=== PATIENT | female | born 1945 | race Caucasian/White ===

== ENCOUNTER 2017-01-14 05:31 | Inpatient (IN) | payer MEDICARE ==
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
[2017-01-13 15:13] VITALS: BMI 19.7
--- OUTSIDE RECORDS SUMMARY | 2017-01-14 05:37 | XMS | Clinical Summary ---
:1945 Author Organization [facility] Address [address] [place] [address] Phone Care Team Providers Name Role Phone Aj Marquez Primary Care Provider tel Allergies Active Allergy Reactions Severity Noted Date Comments Atorvastatin 07/19/2015 Ezetimibe 07/19/2015 Current Medications Prescription Sig. Disp. Refills Start Date End Date Status multivitamin capsule Take 1 capsule by Active mouth daily. cholecalciferol, vitamin Chew 4,000 Units Active D3, 1,000 unit daily. tablet,chewable magnesium 30 mg tablet Take 30 mg by mouth Active 2 (two) times a day. OMEGA-3 FATTY ACIDS/FISH Take by mouth. Active OIL (OMEGA 3 FISH OIL ORAL) mirtazapine (REMERON) 15 06/11/2016 Active MG tablet amoxicillin (AMOXIL) 500 Take 500 mg by Active MG capsule mouth. clonAZEPAM (KlonoPIN) 0.5 TAKE ONE (1) 0 05/13/2016 Active MG tablet TABLET(S) BY MOUTH TWICE A DAY NEEDED FOR ANXIETY. fexofenadine-pseudoepHEDr Take 1 tablet by 06/29/2014 Active ine (GURDEEP-D 24) mouth as needed. 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, diag 10/2009, XRT, Tamoxifen for 5 years Chronic pancreatitis 07/19/2015 HLD (hyperlipidemia) 07/19/2015 Family history of coronary artery disease 05/22/2014 Incomplete right bundle branch block (RBBB) 05/22/2014 Colon polyp 02/06/2013 Disorder of bone and articular cartilage 03/21/2012 Osteoporosis 04/15/2011 Vitamin D deficiency 04/15/2011 Neoplasm of breast, primary tumor staging category Tis: ductal 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 in situ (DCIS) Overview: Overview: left breast Mitral valve prolapse 04/19/1989 Resolved Problems Problem Noted Date Resolved Date Idiopathic osteoporosis 08/08/2015 08/08/2015 Abnormal weight loss 07/19/2015 08/08/2015 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 08/08/2015 Dyslipidemia 05/22/2014 08/08/2015 History of malignant neoplasm of breast 07/27/2011 08/08/2015 Malignant neoplasm of breast 04/15/2011 08/08/2015 Immunizations Name Dates Previously Given Next Due Hep A, Unspecified 06/29/2014 Hep B, Unspecified 06/29/2014 Influenza (IM) Preservative Free 01/12/2013 Influenza TIV (IM) 05/08/2014 Pneumococcal Conjugate 13-Valent 08/11/2016 Pneumococcal Polysaccharide 06/11/2011 Tdap 06/29/2014 Family History Medical History Relation Name Comments Colon cancer Father Esophageal cancer Father Osteoarthritis Father Hip Surgery in 80s Rheum arthritis Maternal Grandfather at 27 Breast cancer Maternal Grandmother Diagnosed and at Age 62 Dementia Mother Heart attack Mother Osteoporosis Mother Rheum arthritis Mother Stroke Mother Cancer Paternal Grandmother Back Kidney disease Neg Hx Relation Name Status Comments Father Maternal Grandfather Maternal Grandmother Mother Paternal Grandfather Paternal Grandmother Social History Tobacco Use Types Packs/Day Years Used Date Former Smoker 2 Smokeless Tobacco: Never Used Alcohol Use Drinks/Week oz/Week Comments No Sex Assigned at Date Recorded Not on file Last Filed Vital Signs Vital Sign Reading Time Taken Blood Pressure 98/65 08/11/2016 11:02 AM CDT Pulse 87 08/11/2016 11:02 AM CDT Temperature 36.3 C (97.4 F) 08/11/2016 11:02 AM CDT Respiratory Rate - - Oxygen Saturation 98% 08/11/2016 11:02 AM CDT Inhaled Oxygen Concentration - - Weight 51.3 kg (113 lb) 08/11/2016 11:02 AM CDT Height 156.7 cm (5' 1.7") 08/11/2016 11:02 AM CDT Body Mass Index 20.87 08/11/2016 11:02 AM CDT Plan of Treatment Health Maintenance Due Date Last Done Comments COLONOSCOPY 08/31/1995 ZOSTER VACCINE 2005 MAMMOGRAM 05/20/2015 05/20/2013 INFLUENZA VACCINE 11/17/2016 05/08/2014, 01/12/2013 PNEUMOCOCCAL POLYSACCHARIDE VACCINE AGE 65 Completed 06/11/2011 AND OVER PNEUMOCOCCAL-13 Completed 08/11/2016 Results Not on filefrom Last 3 Months Insurance Payer Benefit Plan / Group Subscriber ID Type Phone Address [employer] PPO [id number] PPO Home: [phone] [place], [place] [phone]
--- OUTSIDE RECORDS SUMMARY | 2017-01-14 05:37 | XMS | Clinical Summary ---
:1945 Author Organization [facility] Address [address] [place] [address] Phone Care Team Providers Name Role Phone , Primary Care Provider Unavailable Allergies Not on File Current Medications Not on file Active Problems Not on file Social History Tobacco Use Types Packs/Day Years Used Date Never Assessed Sex Assigned at Date Recorded Not on file Last Filed Vital Signs Not on file Plan of Treatment Not on file Results Not on filefrom Last 3 Months
[2017-01-14] MEDS ORDERED: Fentanyl 100 MCG/2 ML VIAL ONE ×2 (06:03→12:38)
[2017-01-14] MEDS ORDERED: Bacitracin Zinc Ointment 30 gm TUBE ONE (06:18)
[2017-01-14] MEDS ORDERED: Bupivacaine HCl 0.5%/Epinephrine 1:200,000/PF 30 ml Vial ONE (06:18)
[2017-01-14] MEDS ORDERED: Sodium Chloride 0.9% 30 ML ONE (06:18)
[2017-01-14] MEDS ORDERED: Thrombin 5000 UNITS/5 ML VIAL ONE (06:18)
[2017-01-14 06:34] LABS: Hematocrit 45.6 % (36.0-47.0); Mean Platelet Volume 6.7 fL (7.4-10.4); Red Blood Cell (RBC) Count 4.61 mill/uL (4.20-5.40); White Blood Cell (WBC) Count 3.8 thou/uL (4.8-10.8)
[2017-01-14 06:39] LABS: PTT 24.2 SEC (22.9-36.1); Prothrombin Time 13.1 SEC (12.0-14.7)
[2017-01-14 06:53] LABS: Band 3 % (5-11); Neutrophil 39 % (42-75)
[2017-01-14 07:01] LABS: Anion Gap 12 mmol/L (10-20); BUN (Urea Nitrogen) 22 mg/dL (9.8-20.1); Calc. Creatinine Clearance 51 mL/min (70-130); Calcium 9.4 mg/dL (7.8-10.44); Carbon Dioxide 26 mmol/L (23-31); Chloride 107 mmol/L (98-107); Estimated GFR-MDRD 72
[2017-01-14] MEDS ORDERED: PHENYLEPHRINE-NS 100 MCG/ML 10 ML SYRINGE ONE (07:10)
[2017-01-14] MEDS ORDERED: Propofol 200 MG/20 ML VIAL ONE ×2 (07:10)
[2017-01-14] MEDS ORDERED: Vecuronium 10 MG VIAL ONE (07:10)
[2017-01-14] MEDS ORDERED: Ondansetron HCl/PF 4 MG/2 ML Vial ONE ×2 (07:10→13:17)
[2017-01-14] MEDS ORDERED: Glycopyrrolate 0.2 MG/ML 5 ML SYRINGE ONE (07:10)
[2017-01-14] MEDS ORDERED: Lidocaine 1% PF 5 ML VIAL ONE (07:10)
[2017-01-14] MEDS ORDERED: Dexamethasone 20 MG/5 ML VIAL ONE (07:10)
--- NOTE | 2017-01-14 09:46 | OP ---
DATE OF OPERATION: 01/14/2017 SURGEON: Ambika Scott M.D. DRIVERS' CASH CLERK: Andry Gonzalez PA-C. PREOPERATIVE INDICATION: Prevent neurological deterioration. PREOPERATIVE DIAGNOSES: C5 lateral mass fracture, delayed spondylolisthesis instability and disloca tion at C4-C5. POSTOPERATIVE DIAGNOSIS: C5 lateral mass fracture, delayed spondylolisthesis instability and disloc ation at C4-C5. OPERATIVE PROCEDURE: Anterior cervical diskectomy, intervertebral arthrodesis, placement of interve rtebral biomechanical device, anterior cervical plating C4-C5, open reduction internal fixation with distraction pins at C4-C5, closed reduction before surgery started at C4-C5. Local morselized auto graft, morselized allograft, operating microscope. (Posterior procedure under same anesthetic dictated under a separate heading). PREOPERATIVE MEDICATION: Ancef 2 grams IV. DRAIN NUMBER: One. DRAIN TYPE: 10 [place] Elmer. OPERATIVE DICTATION: The patient was brought to the operating room. Keeping the neck in normal hamilton tomic alignment, leaving the collar on, general endotracheal anesthesia was induced. Using a latera l fluoro radiograph the patient was carefully positioned supine on the operating table with her head supported by gel-filled donut shaped head rest. A lateral fluoro radiograph also was used to plan our incision. The right side of the neck was sterilely prepped and draped. We opened a 10 blade kn itzel and controlled bleeding with bipolar cautery. We dissected sharply to the platysma and continue d our dissection medial to the sternocleidomastoid, lateral to the trachea and esophagus. We arrive d to the prevertebral space and placed a marker at C4-C5 and took a lateral fluoro radiograph to con firm the level upon which we were operating. We then elevated the longus colli muscles off of C4 an d C5 anteriorly, we placed a self-retaining retractor. There was still kyphotic deformity and displ acement of C4 relative to C5. Distraction pins were placed at C4 and C5 parallel to the endplates o f the respective vertebral bodies. These distraction pins met anteriorly because of the kyphotic an gle, a Hatfield distractor was placed with distraction and change in angulation we got a very good red uction of the dislocation. We cut the anterior longitudinal ligament and there was even more reduct ion. Alignment was not perfect, but was quite good. We removed disk contents from the disk space u sing curets and rongeurs and brought the operating microscope into the field. Under microscopic magnification using microsurgical techniques, we removed the remainder of the inte rvertebral disk. We removed the posterior longitudinal ligament across the entire interspace. We m jean sure the right and left nerve roots were well decompressed. We were not very aggressive in the right foramen due to the occlusion of the left vertebral artery. We then prepared the endplates for grafting using a bone rasp, we measured the height of the interspaces to 6 mm. A 6 mm peak graft was brought into the field. We loaded this with our local morselized autograft, w hich was obtained from osteophyte was removed from C4 and C5, which were carefully cleaned of soft t issue and morselized into the demineralized bone matrix as our fusion substrate. We packed the subs trate in the PEEK graft and advanced the PEEK graft into the interspace under radiographic guidance to the appropriate depth. We then removed our distraction pins. A 12 mm anterior cervical plate wa s brought into the field. We brought the operating microscope out of the field. We drilled pilot plant research technician holes through the plate into the vertebral segments of C4 and C5 and affixed the pl ate using 14 mm fixed screws at both of the vertebral bodies. We engaged the locking mechanism over each of the 4 screws. AP and lateral fluoro radiographs confirmed adequate position of our instrum entation. The patient was due to continue aspirin therapy for her vertebral artery injury so we lef t a drain. We tunneled inferiorly through a separate stab incision. We closed our wound in anatomi c layers over a drain. This was a clean case and no contamination.
[2017-01-14] MEDS ORDERED: Ondansetron HCl/PF 4 MG/2 ML Vial IVP PRN (10:18)
[2017-01-14] MEDS ORDERED: Milk Of Magnesia 30 ML UDCUP PO PRN (11:54)
[2017-01-14] MEDS ORDERED: Morphine Sulfate 2 MG/ML SYRINGE SLOW IVP PRN (11:54)
[2017-01-14] MEDS ORDERED: Gabapentin 100 MG CAP PO PRN (11:57)
[2017-01-14] MEDS ORDERED: MENTHOL TOP SCH (12:00)
[2017-01-14] MEDS ORDERED: CAMPHOR TOP SCH (12:00)
[2017-01-14] MEDS ORDERED: [UNRECOGNIZED DRUG - OTHER] TOP SCH (12:00)
--- NOTE | 2017-01-14 12:29 | OP ---
DATE OF PROCEDURE: 01/14/2017 NEUROSURGERY OPERATIVE NOTE SURGEON: Raúl Scott M.D. BRANCH LOGISTICS SUPERVISOR: Andry Gonzalez PA-C PREOPERATIVE INDICATION: Prevent neurological deterioration. PREOPERATIVE DIAGNOSES: Lateral mass fracture C5, delayed spondylolisthesis C4-C5/dislocation. POSTOPERATIVE DIAGNOSES: Lateral mass fracture C5, delayed spondylolisthesis C4-C5/dislocation. OPERATIVE PROCEDURES: 1. (Anterior portion dictated under separate heading under the same anesthetic). Posterolateral ar throdesis C4-C5 pedicles, lateral mass screw and monse instrumentation, C4-C5. Local morselized autog raft, morselized allograft, decompressive laminectomy C4 and C5. 2. Posterior open reduction and internal fixation C4-C5 fracture dislocation. PREOPERATIVE MEDICATION: Ancef 2 grams IV. DRAIN NUMBER: One. DRAIN TYPE: 10 Mexican Elmer. OPERATIVE DICTATION: The patient was still under general anesthesia from our anterior procedure. T he Tivra rigo headholder was attached to the patient's head. She was gently rolled onto a sepa rate operative table with gel filled chest rolls supporting her chest and hips. The head was immobi lized using the Tivra attachments for the operating table and hair was removed with electric clip pers. We planned a midline incision down over the posterior portion of the cervical spine. The preston k of the neck was sterilely prepped and draped. We opened with a 10 blade knife and controlled blee ding with bipolar and monopolar cautery. We used monopolar cautery to dissect through the subcutane ous tissues to the ligamentum nuchae. We stayed in the midline and dissected all the way down into the spinous processes from C3-C7. Self-retaining retractors were placed and a hemostat placed at th e C4 spinous process to confirm the levels upon which we were operating. We then folded along the p araspinal muscles off the spinous process and lamina of C3, C4, C5, and C6. We placed the self-london ining retractor. We took another lateral fluoro radiograph with a marker at the facet joint at C4-5 to reconfirm. We noticed that there were still small bit of kyphotic angulation even after anterio r decompression and fusion. We elected to reduce this with compression across the lateral mass scre ws that we were going to place. However, because of the kyphosis, we performed laminectomy to ensur e there is no cord compression at all. With Kerrison rongeur, we fashioned the laminectomy at C4 an d the superior 10 mm of C5. We widened our laminectomy defect until we were around the thecal sac. We decompressed the lateral recesses and palpated C4-C5 foramen. We ensured that a micro-ball prob e could pass out either foramen. We irrigated with bacitracin irrigation and controlled bleeding wi th gentle bipolar cautery. We waxed the bone edges. We then turned our attention to arthrodesis. Using bony anatomic landmarks, with lateral fluoro radiograph as a guide, we chose entry points for lateral mass screws. An angled superiorly and laterally and drilled our screw trajectories. We pro bed them and found them completely encased in bone. We placed 12 mm lateral mass screws at C4 bilat erally and C5 on the right C4, on n the left at C5 we placed a 10 mm screw going to the fracture and the smaller remnant left behind. We irrigated once again with bacitracin irrigation. We brought r ods and then screw heads and tightened caps over the rods. We used gentle compression to further re duce the kyphotic deformity from fracture dislocation. We tightened the caps over the rods using to [id number] mechanism to ensure adequate tightness. We irrigated one final time. We decort icated outer part of the lateral aspect of each of the lateral masses at C4 and C5 and over decortic ated bone, we then demineralized bone matrix and morselized autograft as our fusion substrate. We t unneled the drain inferiorly through a separate stab incision. We closed the wound in anatomic laye rs over a drain. We applied a sterile dressing. This was a clean case and no contamination.
[2017-01-14] MEDS: Sodium Chloride 0.9% 1,000 ML IV SCH (14:47)
[2017-01-14] MEDS: Acetaminophen/Codeine 30-300mg Tablet PO PRN ×2 (17:14→20:18)
[2017-01-14] MEDS: Mirtazapine 15 MG TAB PO SCH (20:18)
[2017-01-14] MEDS: tiZANidine HCl 4 MG TAB PO SCH (20:18)
[2017-01-14] MEDS ORDERED: TIZANIDINE HCL PO SCH (21:00)
[2017-01-14] MEDS: clonazePAM 0.5 MG TAB PO PRN (22:19)
[2017-01-15] MEDS: Sodium Chloride 0.9% 1,000 ML IV SCH ×2 (03:33→15:55)
[2017-01-15] MEDS: tiZANidine HCl 4 MG TAB PO PRN (06:26)
[2017-01-15] MEDS: Ondansetron HCl/PF 4 MG/2 ML Vial IVP PRN ×2 (06:36→11:53)
[2017-01-15] MEDS ORDERED: Ondansetron HCl 4 MG/5 ML UDCUP PO PRN (07:00)
--- NOTE | 2017-01-15 07:23 | PRG ---
DATE OF SERVICE: 01/15/2017 Ms. Maria is waking up in the morning after anterior, posterior cervical decompression and fusion. She had a delayed dislocation of the lateral mass fracture through the fractures to the lateral mas s of C5, she had a C4-5 kyphotic deformity and listhesis that developed in a delayed fashion. Since surgery, she has had neck pain. She is nauseated. She is a bit disoriented and as having some kem lucinations from time to time. She has significant pain over the shoulders bilaterally. Thankfully, her examination shows good strength in the fingers, her deltoids are actually stronger t irizarry they were before surgery or she is providing more effort. I do not see any new deficit. This m orning she is quite oriented and she has not seeing the hallucinations she had after anesthesia last night. She still complains of some nausea and feels as though there is a lump in her throat. My plan today is to start Protonix to help with her stomach, we will give her Zofran every 4 hours i nstead of every 6 hours. We will begin mobilization. She can have her collar off when she is in be d and showering and eating, but otherwise I would like her to have it on. We will use corporate physical security supervisor apy to help ease her neck tension pain from her surgery. We will get both drains out today. If she is doing well in the afternoon, she can go home. Otherwise, she can stay another day.
--- NOTE | 2017-01-15 07:29 | PRG ---
DATE OF SERVICE: 01/15/2017 SUBJECTIVE: Ms. Maria is a 71-year-old female who I saw in her room this morning. There have been no acute events overnight and she has been stable. Her vital signs has been stable. The posterior MERRY drain has put out 20 mL and the anterior MERRY drain has put out 0 mL. She has had some pain when sitting up overnight. She is in a cervical pediatric collar this morning. There are no new neurolo gic deficits on exam. Ms. Maria today can work with physical therapy and ambulate as much as frequ ently as possible. Continue taking aspirin 325 mg p.o. daily. If there are any further concerns, eric polanco contact Neurosurgery.
[2017-01-15] MEDS: Pantoprazole 40 MG VIAL IVP SCH ×2 (08:06→20:59)
[2017-01-15] MEDS: Aspirin 325 MG TAB PO SCH (08:07)
[2017-01-15] MEDS: tiZANidine HCl 4 MG TAB PO SCH ×2 (08:07→21:29)
[2017-01-15] MEDS ORDERED: Menthol/Camphor Lotion 222 ml Bottle TOP SCH (09:00)
[2017-01-15] MEDS: Acetaminophen/Codeine 30-300mg Tablet PO PRN (13:13)
[2017-01-15] MEDS: clonazePAM 0.5 MG TAB PO PRN (20:39)
[2017-01-15] MEDS: Mirtazapine 15 MG TAB PO SCH (20:40)
[2017-01-16] MEDS: Acetaminophen/Codeine 30-300mg Tablet PO PRN ×3 (02:08→19:14)
[2017-01-16] MEDS: Sodium Chloride 0.9% 1,000 ML IV SCH ×3 (02:54→23:20)
[2017-01-16] MEDS: tiZANidine HCl 4 MG TAB PO SCH ×2 (09:32→21:07)
[2017-01-16] MEDS: Pantoprazole 40 MG VIAL IVP SCH ×2 (09:32→21:08)
[2017-01-16] MEDS: Aspirin 325 MG TAB PO SCH (09:32)
--- NOTE | 2017-01-16 10:13 | PRG ---
DATE OF SERVICE: 01/16/2017 Ricardo Abdul PA-C dictating for Dr. Lasha Mcgarry. SUBJECTIVE: Ms. Maria is now postoperative day #2, having undergone an anterior cervical diskectom y and fusion and posterior cervical fusion with Dr. Scott. The patient remains extremely hoarse , does have some difficulties with falling; however, states this is very slowly improving. She also notes improvement in her nausea. She does have moderate posterior neck pain radiating into the zachery ateral shoulders, but does not note any arm weakness. She is neurologically intact. We will keep h er drains in for the remainder of the day and probably we will remove them tomorrow. She should rem ain on antibiotics while the drains are in place. I have asked her to wear her collar anytime she i s out of bed. Please call with any changes in neurological status. Otherwise, the patient is stabl e postoperatively.
[2017-01-16] MEDS ORDERED: Ondansetron ODT 4 MG TAB PO PRN (12:24)
[2017-01-16] MEDS ORDERED: Acetaminophen 325 MG TAB PO PRN (12:24)
[2017-01-16] MEDS ORDERED: Mag-Al 1200 mg/1200 mg/30 ML UDCUP PO PRN (12:24)
[2017-01-16] MEDS ORDERED: Eucerin (Mineral Oil/Petrolatum,White) 30 gm Jar TOP PRN (12:24)
[2017-01-16] MEDS ORDERED: Sodium Chloride 0.65% Nasal 44 ML BOT EA NARE PRN (12:24)
[2017-01-16] MEDS ORDERED: Artificial Tear Sol 15 ML BOT EA EYE PRN (12:24)
[2017-01-16] MEDS ORDERED: Loperamide HCl 2 MG CAP PO PRN (12:24)
[2017-01-16] MEDS ORDERED: Diabetic Tussin 200 MG/10 ML UDCUP PO PRN (12:24)
[2017-01-16] MEDS ORDERED: Senokot 8.6 MG TAB PO PRN (12:24)
--- NOTE | 2017-01-16 13:03 | PDOC.PN ---
- Subjective Encounter Start Date: 01/16/17 Encounter Start Time: 13:05 -: old records requested/rev see my consult note - Objective MAR Reviewed: Yes Vital Signs & Weight: Vital Signs (12 hours) Temp Pulse Resp BP Pulse Ox 01/16/17 12:35 82 86/45 L 01/16/17 11:35 97.8 F 79 14 88/50 L 96 01/16/17 07:48 98 F 87 14 101/58 L 95 01/16/17 04:00 97.9 F 92 16 109/67 94 L Weight Weight 108 lb I&O: 01/15/17 01/16/17 01/17/17 06:59 06:59 06:59 Intake Total 1030 400 Output Total 20 25 Balance 1010 375 Result Diagrams: 01/14/17 06:24 01/14/17 06:24 Phys Exam - Physical Examination Constitutional: NAD HEENT: moist MMs Neck: no nodes, no JVD, supple Respiratory: no wheezing, no rales, no rhonchi Cardiovascular: RRR, no significant murmur, no rub Gastrointestinal: soft, non-tender, no distention, positive bowel sounds Musculoskeletal: no edema, pulses present Neurological: non-focal, normal sensation, moves all 4 limbs Lymphatic: no nodes Psychiatric: normal affect, A&O x 3 Skin: no rash, normal turgor Dx/Plan (1) Hypotension Status: Acute (2) Cervical radiculopathy Code(s): M54.12 - RADICULOPATHY, CERVICAL REGION Status: Chronic (3) S/P laminectomy Code(s): Z98.890 - OTHER SPECIFIED POSTPROCEDURAL STATES Status: Acute (4) Anxiety and depression Code(s): F41.8 - OTHER SPECIFIED ANXIETY DISORDERS Status: Chronic - Plan cont current plan of care, PT/OT * bolus fluid 500 ml and then 100 ml per hour * see consult note. Review of Systems - Review of Systems ENT: negative: Ear Pain, Ear Discharge, Nose Pain, Nose Discharge, Nose Congestion, Mouth Pain, Mouth Swelling, Throat Pain, Throat Swelling, Other Respiratory: negative: Cough, Dry, Shortness of Breath, Hemoptysis, SOB with Excertion, Pleuritic Pain, Sputum, Wheezing Cardiovascular: negative: Chest Pain, Palpitations, Orthopnea, Paroxysmal Noc. Dyspnea, Edema, Light Headedness, Other Gastrointestinal: negative: Nausea, Vomiting, Abdominal Pain, Diarrhea, Constipation, Melena, Hematochezia, Other Genitourinary: negative: Dysuria, Frequency, Incontinence, Hematuria, Retention , Other Musculoskeletal: negative: Neck Pain, Shoulder Pain, Arm Pain, Back Pain, Hand Pain, Leg Pain, Foot Pain, Other - Medications/Allergies Allergies/Adverse Reactions: Allergies Allergy/AdvReac Type Severity Reaction Status Date / Time No Known Drug Allergies Allergy Verified 01/13/17 15:13 Medications: Current Medications Acetaminophen (Tylenol) 650 mg PO Q4H PRN PRN Reason: Headache/Fever or Mild Pain Acetaminophen/Codeine Phosphate (Tylenol #3) 2 tab PO Q3H PRN PRN Reason: Moderate Pain (4-6) Last Admin: 01/16/17 05:48 Dose: 2 tab Acetaminophen/Codeine Phosphate (Tylenol #3) 1 tab PO Q3H PRN PRN Reason: Mild Pain (1-3) Al Hydroxide/Mg Hydroxide (Maalox) 15 ml PO Q4H PRN PRN Reason: Heartburn or Indigestion Artificial Tears (Tears Renewed 15ml Bottle) 0 drop EA EYE PRN PRN PRN Reason: Dry Eyes Aspirin (Aspirin) 325 mg PO DAILY [facility] Last Admin: 01/16/17 09:32 Dose: 325 mg Camphor/Menthol (Sarna Lotion) 0 ml TOP ASDIR [facility] Cefazolin Sodium (Ancef) 2 gm SLOW IVP Q8H [facility] Stop: 01/17/17 13:01 Last Admin: 01/16/17 12:32 Dose: 2 gm Clonazepam (Klonopin) 0.5 mg PO BIDPRN PRN PRN Reason: Anxiety Last Admin: 01/15/17 20:39 Dose: 0.5 mg Gabapentin (Neurontin) 100 mg PO BIDPRN PRN PRN Reason: Mild Pain (1-3) Last Admin: 01/14/17 14:47 Dose: 100 mg Guaifenesin (Robitussin Sf) 200 mg PO Q4H PRN PRN Reason: Cough Sodium Chloride (Normal Saline 0.9%) 500 mls @ 999 mls/hr IV .Q31M [facility] Stop: 01/16/17 14:00 Sodium Chloride (Normal Saline 0.9%) 1,000 mls @ 100 mls/hr IV .Q10H [facility] Loperamide HCl (Imodium) 2 mg PO PRN PRN PRN Reason: Diarrhea/Loose Stools Magnesium Hydroxide (Milk Of Magnesium) 30 ml PO Q12H PRN PRN Reason: Constipation Mineral Oil/White Petrolatum (Eucerin Cream) 0 gm TOP BIDPRN PRN PRN Reason: Dry Skin Mirtazapine (Remeron) 15 mg PO HS [facility] Last Admin: 01/15/17 20:40 Dose: 15 mg Morphine Sulfate (Morphine Sulfate) 4 mg SLOW IVP Q1H PRN PRN Reason: Severe Breakthrough Pain Morphine Sulfate (Morphine Sulfate) 2 mg SLOW IVP Q1H PRN PRN Reason: MODERATE BREAKTHRU PAIN Ondansetron HCl (Zofran) 4 mg IVP Q6H PRN PRN Reason: Nausea Last Admin: 01/15/17 11:53 Dose: 4 mg Ondansetron HCl (Zofran) 4 mg PO Q6H PRN PRN Reason: Nausea/Vomiting Ondansetron HCl (Zofran Odt) 4 mg PO Q6H PRN PRN Reason: Nausea/Vomiting Pantoprazole Sodium (Protonix) 40 mg IVP Q12HR [facility] Last Admin: 01/16/17 09:32 Dose: 40 mg Senna (Senokot) 2 tab PO HSPRN PRN PRN Reason: Constipation Sodium Chloride (Flush - Normal Saline) 10 ml IVF PRN PRN PRN Reason: Saline Flush Sodium Chloride ([place] Nasal [place] 0.65%) 0 ml EA NARE QIDPRN PRN PRN Reason: Nasal Congestion Tizanidine HCl (Zanaflex) 4 mg PO Q6H PRN PRN Reason: Muscle Spasm Last Admin: 01/15/17 06:26 Dose: 4 mg Tizanidine HCl (Zanaflex) 4 mg PO BID [facility] Last Admin: 01/16/17 09:32 Dose: 4 mg
[2017-01-16] MEDS: Sodium Chloride 0.9% 500 ML IV SCH ×2 (13:30→17:30)
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
[2017-01-16] MEDS: clonazePAM 0.5 MG TAB PO PRN (21:07)
[2017-01-16] MEDS: Mirtazapine 15 MG TAB PO SCH (21:07)
[2017-01-17] MEDS: tiZANidine HCl 4 MG TAB PO PRN (04:42)
[2017-01-17] MEDS: Sodium Chloride 0.9% 1,000 ML IV SCH ×2 (09:24→19:58)
[2017-01-17] MEDS: Aspirin 325 MG TAB PO SCH (09:25)
[2017-01-17] MEDS: tiZANidine HCl 4 MG TAB PO SCH ×2 (09:25→19:59)
[2017-01-17] MEDS: Pantoprazole 40 MG VIAL IVP SCH ×2 (09:25→20:01)
[2017-01-17] MEDS ORDERED: Chloraseptic Spray 180 ml Bottle PO PRN (10:33)
--- NOTE | 2017-01-17 10:33 | PDOC.PN ---
- Subjective Encounter Start Date: 01/17/17 Encounter Start Time: 08:10 -: old records requested/rev Patient seen and examined. c/o throat pain. No overnight events - Objective MAR Reviewed: Yes Vital Signs & Weight: Vital Signs (12 hours) Temp Pulse Resp BP Pulse Ox 01/17/17 08:14 97.8 F 77 16 101/64 95 01/17/17 04:00 98.4 F 74 14 93/58 L 95 01/17/17 00:00 98.1 F 82 16 95/56 L 92 L Weight Weight 108 lb I&O: 01/16/17 01/17/17 01/18/17 06:59 06:59 06:59 Intake Total 400 1600 Output Total 25 2 Balance 375 1598 Result Diagrams: 01/14/17 06:24 01/14/17 06:24 Phys Exam - Physical Examination Constitutional: NAD HEENT: PERRLA, moist MMs, sclera anicteric Neck: no JVD, supple drain+ Respiratory: no wheezing, no rales, no rhonchi Cardiovascular: RRR, no significant murmur, no rub Gastrointestinal: soft, non-tender, no distention, positive bowel sounds Musculoskeletal: no edema, pulses present Neurological: non-focal, normal sensation, moves all 4 limbs Psychiatric: normal affect, A&O x 3 Skin: no rash, normal turgor Dx/Plan (1) Hypotension Status: Resolved (2) Cervical radiculopathy Code(s): M54.12 - RADICULOPATHY, CERVICAL REGION Status: Chronic (3) S/P laminectomy Code(s): Z98.890 - OTHER SPECIFIED POSTPROCEDURAL STATES Status: Acute (4) Anxiety and depression Code(s): F41.8 - OTHER SPECIFIED ANXIETY DISORDERS Status: Chronic - Plan cont current plan of care, PT/OT * hypotension reolved * continue IVF * drain as per neurosurgeon * continue PT * pain control * symptomatic treatment. Review of Systems - Review of Systems Constitutional: negative: Fever, Chills, Sweats, Weakness, Malaise, Other Eyes: negative: Pain, Vision Change, Conjunctivae Inflammation, Eyelid Inflammation, Redness, Other ENT: Throat Pain. negative: Ear Pain, Ear Discharge, Nose Pain, Nose Discharge , Nose Congestion, Mouth Pain, Mouth Swelling, Throat Swelling, Other Respiratory: negative: Cough, Dry, Shortness of Breath, Hemoptysis, SOB with Excertion, Pleuritic Pain, Sputum, Wheezing Cardiovascular: negative: Chest Pain, Palpitations, Orthopnea, Paroxysmal Noc. Dyspnea, Edema, Light Headedness, Other Gastrointestinal: negative: Nausea, Vomiting, Abdominal Pain, Diarrhea, Constipation, Melena, Hematochezia, Other Genitourinary: negative: Dysuria, Frequency, Incontinence, Hematuria, Retention , Other Musculoskeletal: negative: Neck Pain, Shoulder Pain, Arm Pain, Back Pain, Hand Pain, Leg Pain, Foot Pain, Other - Medications/Allergies Allergies/Adverse Reactions: Allergies Allergy/AdvReac Type Severity Reaction Status Date / Time No Known Drug Allergies Allergy Verified 01/13/17 15:13 Medications: Current Medications Acetaminophen (Tylenol) 650 mg PO Q4H PRN PRN Reason: Headache/Fever or Mild Pain Acetaminophen/Codeine Phosphate (Tylenol #3) 2 tab PO Q3H PRN PRN Reason: Moderate Pain (4-6) Last Admin: 01/16/17 19:14 Dose: 2 tab Acetaminophen/Codeine Phosphate (Tylenol #3) 1 tab PO Q3H PRN PRN Reason: Mild Pain (1-3) Al Hydroxide/Mg Hydroxide (Maalox) 15 ml PO Q4H PRN PRN Reason: Heartburn or Indigestion Artificial Tears (Tears Renewed 15ml Bottle) 0 drop EA EYE PRN PRN PRN Reason: Dry Eyes Aspirin (Aspirin) 325 mg PO DAILY [facility] Last Admin: 01/17/17 09:25 Dose: 325 mg Camphor/Menthol (Sarna Lotion) 0 ml TOP ASDIR [facility] Cefazolin Sodium (Ancef) 2 gm SLOW IVP Q8H [facility] Stop: 01/17/17 13:01 Last Admin: 01/17/17 04:43 Dose: 2 gm Clonazepam (Klonopin) 0.5 mg PO BIDPRN PRN PRN Reason: Anxiety Last Admin: 01/16/17 21:07 Dose: 0.5 mg Gabapentin (Neurontin) 100 mg PO BIDPRN PRN PRN Reason: Mild Pain (1-3) Last Admin: 01/14/17 14:47 Dose: 100 mg Guaifenesin (Robitussin Sf) 200 mg PO Q4H PRN PRN Reason: Cough Sodium Chloride (Normal Saline 0.9%) 1,000 mls @ 100 mls/hr IV .Q10H [facility] Last Admin: 01/17/17 09:24 Dose: 1,000 mls Loperamide HCl (Imodium) 2 mg PO PRN PRN PRN Reason: Diarrhea/Loose Stools Magnesium Hydroxide (Milk Of Magnesium) 30 ml PO Q12H PRN PRN Reason: Constipation Mineral Oil/White Petrolatum (Eucerin Cream) 0 gm TOP BIDPRN PRN PRN Reason: Dry Skin Mirtazapine (Remeron) 15 mg PO HS [facility] Last Admin: 01/16/17 21:07 Dose: 15 mg Morphine Sulfate (Morphine Sulfate) 4 mg SLOW IVP Q1H PRN PRN Reason: Severe Breakthrough Pain Morphine Sulfate (Morphine Sulfate) 2 mg SLOW IVP Q1H PRN PRN Reason: MODERATE BREAKTHRU PAIN Ondansetron HCl (Zofran) 4 mg IVP Q6H PRN PRN Reason: Nausea Last Admin: 01/15/17 11:53 Dose: 4 mg Ondansetron HCl (Zofran) 4 mg PO Q6H PRN PRN Reason: Nausea/Vomiting Ondansetron HCl (Zofran Odt) 4 mg PO Q6H PRN PRN Reason: Nausea/Vomiting Pantoprazole Sodium (Protonix) 40 mg IVP Q12HR [facility] Last Admin: 01/17/17 09:25 Dose: 40 mg Senna (Senokot) 2 tab PO HSPRN PRN PRN Reason: Constipation Sodium Chloride (Flush - Normal Saline) 10 ml IVF PRN PRN PRN Reason: Saline Flush Sodium Chloride ([place] Nasal [place] 0.65%) 0 ml EA NARE QIDPRN PRN PRN Reason: Nasal Congestion Tizanidine HCl (Zanaflex) 4 mg PO Q6H PRN PRN Reason: Muscle Spasm Last Admin: 01/17/17 04:42 Dose: 4 mg Tizanidine HCl (Zanaflex) 4 mg PO BID [facility] Last Admin: 01/17/17 09:25 Dose: 4 mg
--- NOTE | 2017-01-17 12:27 | PRG ---
DATE OF SERVICE: 01/17/2017 Ms. Maria is postoperative day 3 from anterior to posterior decompression stabilization. She is do ing well with improvement compared to yesterday. Neck pain is the biggest issue, although it is imp roved. She has moderate dysphonia and dysphagia, but that is even improving as well. Her anterior drain has had very little output. We removed the posterior drain. We came upon quite a bit of resi stance this morning as we attempted to remove it and as such, I will allow her to stay in place toda y. Neurologically, she is doing well with good strength in upper and lower extremity myotomes. We will make plans to mobilize her today.
[2017-01-17] MEDS: Mirtazapine 15 MG TAB PO SCH (19:59)
[2017-01-17] MEDS: Acetaminophen/Codeine 30-300mg Tablet PO PRN (20:07)
[2017-01-17] MEDS: clonazePAM 0.5 MG TAB PO PRN (21:40)
[2017-01-18] MEDS: Sodium Chloride 0.9% 1,000 ML IV SCH ×2 (05:07→15:16)
--- NOTE | 2017-01-18 07:02 | PRG ---
DATE OF SERVICE: 01/18/2017 Ms. Maria is a 71-year-old female that I saw in her room this morning. She is status post anterior cervical fusion and posterior instrumentation at C4-5. Ms. Maria has no new neurologic deficits o n exam this morning. Her posterior drain was attempted to be pulled yesterday and today and it seem s to be tied in place with a suture. Later she is able to have her breakfast this morning, a light breakfast and then after 8:00 a.m. she will be n.p.o. until we go back in to remove the drain later this afternoon. Overnight, her vital signs have been stable and there are no new events overnight. If there are any further questions, please feel free to contact Neurosurgery. In the meantime, she can continue to work with physical therapy as she improves.
--- NOTE | 2017-01-18 09:24 | PRG ---
DATE OF SERVICE: 01/18/2017 SUBJECTIVE: Ms. Maria is doing well after anterior, posterior decompression and fusion of the cerv ical spine last week. Neurologically, she is doing quite well. Drain was attempted to be removed y esterday from her posterior incision and could not be removed. We can leave our retained drain frag ment. I talked to her about the removal of the drain and she would like to proceed. INFORMED CONSENT: I discussed the indications, risks, benefits, and alternatives to reopening her c ervical incision to remove the drain. The risks discussed included, but were not limited to bleedin g, infection, CSF leak, damage to the spinal cord, damage to major blood vessel, cardiopulmonary com plications of anesthesia. She understands the risks and is willing to proceed.
--- NOTE | 2017-01-18 12:14 | PDOC.PN ---
- Subjective Encounter Start Date: 01/18/17 Encounter Start Time: 10:55 Patient seen and examined. No new complaints. No overnight events - Objective MAR Reviewed: Yes Vital Signs & Weight: Vital Signs (12 hours) Temp Pulse Resp BP Pulse Ox 01/18/17 08:00 97.4 F L 88 14 118/74 99 01/18/17 04:00 98 F 71 16 97/59 L 98 Weight Weight 108 lb I&O: 01/17/17 01/18/17 01/19/17 06:59 06:59 06:59 Intake Total 1600 2970 Output Total 2 5 Balance 1598 2965 Result Diagrams: 01/14/17 06:24 01/14/17 06:24 Phys Exam - Physical Examination Constitutional: NAD HEENT: PERRLA, moist MMs, sclera anicteric Neck: no JVD, supple Respiratory: no wheezing, no rales, no rhonchi Cardiovascular: RRR, no significant murmur, no rub Gastrointestinal: soft, non-tender, no distention, positive bowel sounds Musculoskeletal: no edema, pulses present Neurological: non-focal, normal sensation, moves all 4 limbs Psychiatric: normal affect, A&O x 3 Skin: no rash, normal turgor Dx/Plan (1) Hypotension Status: Resolved (2) Cervical radiculopathy Code(s): M54.12 - RADICULOPATHY, CERVICAL REGION Status: Chronic (3) S/P laminectomy Code(s): Z98.890 - OTHER SPECIFIED POSTPROCEDURAL STATES Status: Acute (4) Anxiety and depression Code(s): F41.8 - OTHER SPECIFIED ANXIETY DISORDERS Status: Chronic - Plan cont current plan of care, PT/OT, socially responsible investment adviser * today drain will be removed * BP is stable * await placement rehab vs swing bed * medication reviewed as below * symptomatic treatment.. Review of Systems - Review of Systems ENT: negative: Ear Pain, Ear Discharge, Nose Pain, Nose Discharge, Nose Congestion, Mouth Pain, Mouth Swelling, Throat Pain, Throat Swelling, Other Respiratory: negative: Cough, Dry, Shortness of Breath, Hemoptysis, SOB with Excertion, Pleuritic Pain, Sputum, Wheezing Cardiovascular: negative: Chest Pain, Palpitations, Orthopnea, Paroxysmal Noc. Dyspnea, Edema, Light Headedness, Other Gastrointestinal: negative: Nausea, Vomiting, Abdominal Pain, Diarrhea, Constipation, Melena, Hematochezia, Other Genitourinary: negative: Dysuria, Frequency, Incontinence, Hematuria, Retention , Other Musculoskeletal: negative: Neck Pain, Shoulder Pain, Arm Pain, Back Pain, Hand Pain, Leg Pain, Foot Pain, Other - Medications/Allergies Allergies/Adverse Reactions: Allergies Allergy/AdvReac Type Severity Reaction Status Date / Time No Known Drug Allergies Allergy Verified 01/13/17 15:13 Medications: Current Medications Acetaminophen (Tylenol) 650 mg PO Q4H PRN PRN Reason: Headache/Fever or Mild Pain Acetaminophen/Codeine Phosphate (Tylenol #3) 2 tab PO Q3H PRN PRN Reason: Moderate Pain (4-6) Last Admin: 01/17/17 20:07 Dose: 2 tab Acetaminophen/Codeine Phosphate (Tylenol #3) 1 tab PO Q3H PRN PRN Reason: Mild Pain (1-3) Al Hydroxide/Mg Hydroxide (Maalox) 15 ml PO Q4H PRN PRN Reason: Heartburn or Indigestion Artificial Tears (Tears Renewed 15ml Bottle) 0 drop EA EYE PRN PRN PRN Reason: Dry Eyes Aspirin (Aspirin) 325 mg PO DAILY [facility] Last Admin: 01/17/17 09:25 Dose: 325 mg Camphor/Menthol (Sarna Lotion) 0 ml TOP ASDIR [facility] Clonazepam (Klonopin) 0.5 mg PO BIDPRN PRN PRN Reason: Anxiety Last Admin: 01/17/17 21:40 Dose: 0.5 mg Gabapentin (Neurontin) 100 mg PO BIDPRN PRN PRN Reason: Mild Pain (1-3) Last Admin: 01/14/17 14:47 Dose: 100 mg Guaifenesin (Robitussin Sf) 200 mg PO Q4H PRN PRN Reason: Cough Sodium Chloride (Normal Saline 0.9%) 1,000 mls @ 100 mls/hr IV .Q10H [facility] Last Admin: 01/18/17 05:07 Dose: 1,000 mls Loperamide HCl (Imodium) 2 mg PO PRN PRN PRN Reason: Diarrhea/Loose Stools Magnesium Hydroxide (Milk Of Magnesium) 30 ml PO Q12H PRN PRN Reason: Constipation Mineral Oil/White Petrolatum (Eucerin Cream) 0 gm TOP BIDPRN PRN PRN Reason: Dry Skin Mirtazapine (Remeron) 15 mg PO HS [facility] Last Admin: 01/17/17 19:59 Dose: 15 mg Morphine Sulfate (Morphine Sulfate) 4 mg SLOW IVP Q1H PRN PRN Reason: Severe Breakthrough Pain Morphine Sulfate (Morphine Sulfate) 2 mg SLOW IVP Q1H PRN PRN Reason: MODERATE BREAKTHRU PAIN Last Admin: 01/18/17 05:41 Dose: 2 mg Ondansetron HCl (Zofran) 4 mg IVP Q6H PRN PRN Reason: Nausea Last Admin: 01/15/17 11:53 Dose: 4 mg Ondansetron HCl (Zofran) 4 mg PO Q6H PRN PRN Reason: Nausea/Vomiting Ondansetron HCl (Zofran Odt) 4 mg PO Q6H PRN PRN Reason: Nausea/Vomiting Pantoprazole Sodium (Protonix) 40 mg IVP Q12HR [facility] Last Admin: 01/17/17 20:01 Dose: 40 mg Phenol (Chloraseptic [place] 180 Ml Bot) 0 ml PO BIDPRN PRN PRN Reason: SORE THROAT Senna (Senokot) 2 tab PO HSPRN PRN PRN Reason: Constipation Sodium Chloride (Flush - Normal Saline) 10 ml IVF PRN PRN PRN Reason: Saline Flush Last Admin: 01/18/17 05:43 Dose: 10 ml Sodium Chloride ([place] Nasal [place] 0.65%) 0 ml EA NARE QIDPRN PRN PRN Reason: Nasal Congestion Tizanidine HCl (Zanaflex) 4 mg PO Q6H PRN PRN Reason: Muscle Spasm Last Admin: 01/17/17 04:42 Dose: 4 mg Tizanidine HCl (Zanaflex) 4 mg PO BID [facility] Last Admin: 01/17/17 19:59 Dose: 4 mg
[2017-01-18] MEDS: tiZANidine HCl 4 MG TAB PO SCH ×2 (15:04→21:36)
[2017-01-18] MEDS: Aspirin 325 MG TAB PO SCH (15:04)
[2017-01-18] MEDS: Pantoprazole 40 MG VIAL IVP SCH ×2 (15:08→21:37)
[2017-01-18] MEDS ORDERED: Pantoprazole 40 MG VIAL IVP SCH (15:15)
[2017-01-18] MEDS ORDERED: Sodium Chloride 0.9% 10 ML ONE (17:11)
[2017-01-18] MEDS ORDERED: Fentanyl 100 MCG/2 ML VIAL ONE (18:07)
[2017-01-18] MEDS ORDERED: Bupivacaine/Epinephrine 0.5% 10 ML VIAL ONE (18:30)
[2017-01-18] MEDS ORDERED: PHENYLEPHRINE-NS 100 MCG/ML 10 ML SYRINGE ONE (18:48)
[2017-01-18] MEDS ORDERED: Ondansetron HCl/PF 4 MG/2 ML Vial ONE (18:48)
[2017-01-18] MEDS ORDERED: Propofol 200 MG/20 ML VIAL ONE (18:48)
[2017-01-18] MEDS ORDERED: Promethazine HCl 25 MG/ML VIAL IM PRN (19:16)
[2017-01-18] MEDS ORDERED: Promethazine HCl 25 MG/ML VIAL SLOW IVP PRN (19:16)
[2017-01-18] MEDS ORDERED: Ondansetron HCl/PF 4 MG/2 ML Vial IVP PRN (19:16)
[2017-01-18] MEDS: Mirtazapine 15 MG TAB PO SCH (21:36)
--- NOTE | 2017-01-19 00:23 | OP ---
DATE OF SURGERY: 01/18/2017 SURGEON: Dr. Raúl Scott. VOLUNTEER PATIENT REPRESENTATIVE: Andry Gonzalez PA-C PREOPERATIVE INDICATION: Prevent infection. PREOPERATIVE DIAGNOSIS: Retained drain. POSTOPERATIVE DIAGNOSIS: Retained drain. OPERATIVE PROCEDURE: Reopening of cervical incision and removal of drain and wound closure. PREOPERATIVE MEDICATION: Ancef 2 grams IV. DRAIN NUMBER: Zero. DRAIN TYPE: None. OPERATIVE DICTATION: Patient was brought to the operating room. General endotracheal anesthesia wa s induced. The patient was positioned prone on the operating table with her chest and hips supporte d by gel-filled chest rolls. Back of the neck was sterilely prepped and draped. It was sterilely p repped one time, the joni removed, it was sterilely prepped again and then draped. We opened her previous incision, removed the drain and closed the wound in anatomic layers. During the procedure , we irrigated with bacitracin irrigation and put more vancomycin powder in the wound.
--- NOTE | 2017-01-19 07:10 | PRG ---
DATE OF SERVICE: 01/19/2017 Ms. Maria is a 71-year-old female who had removal of the drain yesterday. She is doing well this m orning. Her pain is well under control with pain medication. She has been able to tolerate a regul ar diet. Today she will work with physical therapy, ambulating in the lyle. Case management has se nt a note to [facility] and also [facility] or [facility] for some inpatient physical therapy. She will likely find this helpful as she had an anterior and posterior cervical fusion for severe spondylolisthesis. Overnight, her vitals have been stable and she is afebrile. There have been no acute changes in her neurologic status. If there are any further questions, please feel free to contact Neurosurgery.
[2017-01-19] MEDS: Aspirin 325 MG TAB PO SCH (08:17)
[2017-01-19] MEDS: Pantoprazole 40 MG VIAL IVP SCH ×2 (08:17→21:13)
[2017-01-19] MEDS: tiZANidine HCl 4 MG TAB PO SCH ×2 (08:17→21:13)
[2017-01-19] MEDS ORDERED: FLU VACC TS2017-18 (>65YR) 0.5 ML SYRINGE IM ONE (09:00)
--- NOTE | 2017-01-19 10:33 | PDOC.PN ---
- Subjective Encounter Start Date: 01/19/17 Encounter Start Time: 10:35 Patient seen and examined. No new complaints. No overnight events - Objective MAR Reviewed: Yes Vital Signs & Weight: Vital Signs (12 hours) Temp Pulse Resp BP Pulse Ox 01/19/17 08:43 98.1 F 79 14 163/82 H 95 01/19/17 04:08 98.2 F 81 16 126/73 96 01/19/17 00:09 98.2 F 77 18 119/65 97 Weight Weight 108 lb I&O: 01/18/17 01/19/17 01/20/17 06:59 06:59 06:59 Intake Total 2970 1600 Output Total 5 Balance 2965 1600 Result Diagrams: 01/14/17 06:24 01/14/17 06:24 Phys Exam - Physical Examination Constitutional: NAD HEENT: PERRLA, moist MMs, sclera anicteric Neck: no JVD, supple surgical site with dressing Respiratory: no wheezing, no rales, no rhonchi Cardiovascular: RRR, no significant murmur, no rub Gastrointestinal: soft, non-tender, no distention, positive bowel sounds Musculoskeletal: no edema, pulses present Neurological: non-focal, normal sensation Psychiatric: normal affect, A&O x 3 Skin: no rash, normal turgor Dx/Plan (1) Hypotension Status: Resolved (2) Cervical radiculopathy Code(s): M54.12 - RADICULOPATHY, CERVICAL REGION Status: Chronic (3) S/P laminectomy Code(s): Z98.890 - OTHER SPECIFIED POSTPROCEDURAL STATES Status: Acute (4) Anxiety and depression Code(s): F41.8 - OTHER SPECIFIED ANXIETY DISORDERS Status: Chronic - Plan cont current plan of care, PT/OT, case management social worker * medication reviewed as below. * symptomatic treatment * once insurance approves, then will consider discharge to rehab. Review of Systems - Review of Systems ENT: negative: Ear Pain, Ear Discharge, Nose Pain, Nose Discharge, Nose Congestion, Mouth Pain, Mouth Swelling, Throat Pain, Throat Swelling, Other Respiratory: negative: Cough, Dry, Shortness of Breath, Hemoptysis, SOB with Excertion, Pleuritic Pain, Sputum, Wheezing Cardiovascular: negative: Chest Pain, Palpitations, Orthopnea, Paroxysmal Noc. Dyspnea, Edema, Light Headedness, Other Gastrointestinal: negative: Nausea, Vomiting, Abdominal Pain, Diarrhea, Constipation, Melena, Hematochezia, Other Genitourinary: negative: Dysuria, Frequency, Incontinence, Hematuria, Retention , Other Musculoskeletal: negative: Neck Pain, Shoulder Pain, Arm Pain, Back Pain, Hand Pain, Leg Pain, Foot Pain, Other - Medications/Allergies Allergies/Adverse Reactions: Allergies Allergy/AdvReac Type Severity Reaction Status Date / Time No Known Drug Allergies Allergy Verified 01/13/17 15:13 Medications: Current Medications Acetaminophen (Tylenol) 650 mg PO Q4H PRN PRN Reason: Headache/Fever or Mild Pain Acetaminophen/Codeine Phosphate (Tylenol #3) 2 tab PO Q3H PRN PRN Reason: Moderate Pain (4-6) Last Admin: 01/17/17 20:07 Dose: 2 tab Acetaminophen/Codeine Phosphate (Tylenol #3) 1 tab PO Q3H PRN PRN Reason: Mild Pain (1-3) Al Hydroxide/Mg Hydroxide (Maalox) 15 ml PO Q4H PRN PRN Reason: Heartburn or Indigestion Artificial Tears (Tears Renewed 15ml Bottle) 0 drop EA EYE PRN PRN PRN Reason: Dry Eyes Aspirin (Aspirin) 325 mg PO DAILY [facility] Last Admin: 01/19/17 08:17 Dose: 325 mg Camphor/Menthol (Sarna Lotion) 0 ml TOP ASDIR [facility] Clonazepam (Klonopin) 0.5 mg PO BIDPRN PRN PRN Reason: Anxiety Last Admin: 01/17/17 21:40 Dose: 0.5 mg Gabapentin (Neurontin) 100 mg PO BIDPRN PRN PRN Reason: Mild Pain (1-3) Last Admin: 01/14/17 14:47 Dose: 100 mg Guaifenesin (Robitussin Sf) 200 mg PO Q4H PRN PRN Reason: Cough Sodium Chloride (Normal Saline 0.9%) 1,000 mls @ 100 mls/hr IV .Q10H [facility] Last Admin: 01/19/17 00:00 Dose: Not Given Cefazolin Sodium 1 gm/ Sodium (Chloride) 100 mls @ 200 mls/hr IVPB Q8HR [facility] Stop: 01/20/17 14:29 Last Admin: 01/19/17 05:59 Dose: 100 mls Loperamide HCl (Imodium) 2 mg PO PRN PRN PRN Reason: Diarrhea/Loose Stools Magnesium Hydroxide (Milk Of Magnesium) 30 ml PO Q12H PRN PRN Reason: Constipation Mineral Oil/White Petrolatum (Eucerin Cream) 0 gm TOP BIDPRN PRN PRN Reason: Dry Skin Mirtazapine (Remeron) 15 mg PO HS [facility] Last Admin: 01/18/17 21:36 Dose: 15 mg Morphine Sulfate (Morphine Sulfate) 4 mg SLOW IVP Q1H PRN PRN Reason: Severe Breakthrough Pain Morphine Sulfate (Morphine Sulfate) 2 mg SLOW IVP Q1H PRN PRN Reason: MODERATE BREAKTHRU PAIN Last Admin: 01/19/17 02:19 Dose: 2 mg Ondansetron HCl (Zofran) 4 mg IVP Q6H PRN PRN Reason: Nausea Last Admin: 01/15/17 11:53 Dose: 4 mg Ondansetron HCl (Zofran) 4 mg PO Q6H PRN PRN Reason: Nausea/Vomiting Ondansetron HCl (Zofran Odt) 4 mg PO Q6H PRN PRN Reason: Nausea/Vomiting Pantoprazole Sodium (Protonix) 40 mg IVP Q12HR [facility] Last Admin: 01/19/17 08:17 Dose: 40 mg Phenol (Chloraseptic [place] 180 Ml Bot) 0 ml PO BIDPRN PRN PRN Reason: SORE THROAT Senna (Senokot) 2 tab PO HSPRN PRN PRN Reason: Constipation Sodium Chloride (Flush - Normal Saline) 10 ml IVF PRN PRN PRN Reason: Saline Flush Last Admin: 01/19/17 08:17 Dose: 10 ml Sodium Chloride ([place] Nasal [place] 0.65%) 0 ml EA NARE QIDPRN PRN PRN Reason: Nasal Congestion Tizanidine HCl (Zanaflex) 4 mg PO Q6H PRN PRN Reason: Muscle Spasm Last Admin: 01/17/17 04:42 Dose: 4 mg Tizanidine HCl (Zanaflex) 4 mg PO BID [facility] Last Admin: 01/19/17 08:17 Dose: 4 mg
[2017-01-19] MEDS: Acetaminophen/Codeine 30-300mg Tablet PO PRN ×4 (12:16→21:15)
[2017-01-19] MEDS: Sodium Chloride 0.9% 1,000 ML IV SCH ×3 (18:51→21:14)
[2017-01-19] MEDS: Mirtazapine 15 MG TAB PO SCH (21:13)
[2017-01-20] MEDS: Sodium Chloride 0.9% 1,000 ML IV SCH ×3 (06:35→19:58)
--- NOTE | 2017-01-20 07:09 | PRG ---
DATE OF SERVICE: 01/20/2017 Ms. Maria is waiting on rehab placement. She tells me her insurance company is working on it. Her neck is feeling better. It is tighter in the back after her drain removal, but there is no new def icits in the arms, no new numbness on the radiating pain. She is walking with assistance. I think she would benefit from inpatient rehab and arrangements are underway.
--- NOTE | 2017-01-20 07:36 | PRG ---
DATE OF SERVICE: 01/20/2017 Ms. Maria is a 71-year-old female who is status post anterior and posterior ACDF and instrumentatio n placement of the cervical spine. She is waiting on rehab disposition from case management and wor courtney on insurance details. She has been able to ambulate yesterday on her own to the bathroom and s everal times in the [place] with staff. The MERRY drain has been removed and she is receiving antibiotics . I put a prescription on the chart for Keflex when she goes home. There are no new neurologic def icits on exam this morning. Her vital signs have been stable overnight. If there are any further questions, please feel free to contact Neurosurgery.
[2017-01-20] MEDS: Aspirin 325 MG TAB PO SCH (09:09)
[2017-01-20] MEDS: tiZANidine HCl 4 MG TAB PO SCH ×2 (09:09→19:57)
[2017-01-20] MEDS: Pantoprazole 40 MG VIAL IVP SCH ×2 (09:09→19:57)
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
[2017-01-20] MEDS: Acetaminophen/Codeine 30-300mg Tablet PO PRN ×3 (11:14→19:57)
[2017-01-20] MEDS: Mirtazapine 15 MG TAB PO SCH (19:58)
[2017-01-20] MEDS: clonazePAM 0.5 MG TAB PO PRN (23:39)
--- NOTE | 2017-01-21 06:40 | PRG ---
DATE OF SERVICE: 01/21/2017 Ms. Maria is recovering nicely from anterior posterior decompression and fusion for a delayed insta bility for fracture of the cervical spine. Ms. Maria is anticipated on discharge home today. We w ent over home and activity restrictions, wound care and followup arrangements. I think she will con tinue to do well. She asked me to call her caregiver/friend who will be watching after her to go ov er the activity restrictions and I will try to do that from the office this morning.
[2017-01-21 08:03] VITALS: BP 129/69; TEMP 97.8
[2017-01-21] MEDS: Aspirin 325 MG TAB PO SCH (08:53)
[2017-01-21] MEDS: tiZANidine HCl 4 MG TAB PO SCH (08:53)
[2017-01-21] MEDS: Acetaminophen/Codeine 30-300mg Tablet PO PRN ×2 (08:53→12:11)
[2017-01-21] MEDS: Pantoprazole 40 MG VIAL IVP SCH (08:53)
--- NOTE | 2017-01-21 11:33 | PDOC.PN ---
- Subjective Encounter Start Date: 01/21/17 Encounter Start Time: 07:30 -: old records requested/rev Patient seen and examined. No new complaints. No overnight events - Objective MAR Reviewed: Yes Vital Signs & Weight: Vital Signs (12 hours) Temp Pulse Resp BP Pulse Ox 01/21/17 07:50 97.8 F 81 20 129/69 95 01/21/17 05:18 97.9 F 77 18 99/59 L 98 01/21/17 01:20 98.4 F 85 16 91/56 L 93 L Weight Weight 108 lb I&O: 01/20/17 01/21/17 01/22/17 06:59 06:59 06:59 Intake Total 3439 2019 Balance 3439 2019 Result Diagrams: 01/14/17 06:24 01/14/17 06:24 Phys Exam - Physical Examination Constitutional: NAD HEENT: PERRLA, moist MMs, sclera anicteric Neck: no JVD, supple Respiratory: no wheezing, no rales, no rhonchi Cardiovascular: RRR, no significant murmur, no rub Gastrointestinal: soft, non-tender, no distention, positive bowel sounds Musculoskeletal: no edema, pulses present Neurological: non-focal, normal sensation Psychiatric: normal affect, A&O x 3 Skin: normal turgor Dx/Plan (1) Hypotension Status: Resolved (2) Cervical radiculopathy Code(s): M54.12 - RADICULOPATHY, CERVICAL REGION Status: Chronic (3) S/P laminectomy Code(s): Z98.890 - OTHER SPECIFIED POSTPROCEDURAL STATES Status: Acute (4) Anxiety and depression Code(s): F41.8 - OTHER SPECIFIED ANXIETY DISORDERS Status: Chronic - Plan cont current plan of care, PT/OT, psychiatric social worker * medication reviewed as below * medically stable with current treatment * symptomatic treatment * stable for discharge * will sign off. Review of Systems - Review of Systems ENT: negative: Ear Pain, Ear Discharge, Nose Pain, Nose Discharge, Nose Congestion, Mouth Pain, Mouth Swelling, Throat Pain, Throat Swelling, Other Respiratory: negative: Cough, Dry, Shortness of Breath, Hemoptysis, SOB with Excertion, Pleuritic Pain, Sputum, Wheezing Cardiovascular: negative: Chest Pain, Palpitations, Orthopnea, Paroxysmal Noc. Dyspnea, Edema, Light Headedness, Other Gastrointestinal: negative: Nausea, Vomiting, Abdominal Pain, Diarrhea, Constipation, Melena, Hematochezia, Other Genitourinary: negative: Dysuria, Frequency, Incontinence, Hematuria, Retention , Other Musculoskeletal: negative: Neck Pain, Shoulder Pain, Arm Pain, Back Pain, Hand Pain, Leg Pain, Foot Pain, Other - Medications/Allergies Allergies/Adverse Reactions: Allergies Allergy/AdvReac Type Severity Reaction Status Date / Time No Known Drug Allergies Allergy Verified 01/13/17 15:13 Medications: Current Medications Acetaminophen (Tylenol) 650 mg PO Q4H PRN PRN Reason: Headache/Fever or Mild Pain Acetaminophen/Codeine Phosphate (Tylenol #3) 2 tab PO Q3H PRN PRN Reason: Moderate Pain (4-6) Last Admin: 01/21/17 08:53 Dose: 2 tab Acetaminophen/Codeine Phosphate (Tylenol #3) 1 tab PO Q3H PRN PRN Reason: Mild Pain (1-3) Last Admin: 01/20/17 14:18 Dose: 1 tab Al Hydroxide/Mg Hydroxide (Maalox) 15 ml PO Q4H PRN PRN Reason: Heartburn or Indigestion Artificial Tears (Tears Renewed 15ml Bottle) 0 drop EA EYE PRN PRN PRN Reason: Dry Eyes Aspirin (Aspirin) 325 mg PO DAILY [facility] Last Admin: 01/21/17 08:53 Dose: 325 mg Camphor/Menthol (Sarna Lotion) 0 ml TOP ASDIR [facility] Clonazepam (Klonopin) 0.5 mg PO BIDPRN PRN PRN Reason: Anxiety Last Admin: 01/20/17 23:39 Dose: 0.5 mg Gabapentin (Neurontin) 100 mg PO BIDPRN PRN PRN Reason: Mild Pain (1-3) Last Admin: 01/14/17 14:47 Dose: 100 mg Guaifenesin (Robitussin Sf) 200 mg PO Q4H PRN PRN Reason: Cough Sodium Chloride (Normal Saline 0.9%) 1,000 mls @ 100 mls/hr IV .Q10H [facility] Last Admin: 01/20/17 19:58 Dose: Not Given Loperamide HCl (Imodium) 2 mg PO PRN PRN PRN Reason: Diarrhea/Loose Stools Magnesium Hydroxide (Milk Of Magnesium) 30 ml PO Q12H PRN PRN Reason: Constipation Mineral Oil/White Petrolatum (Eucerin Cream) 0 gm TOP BIDPRN PRN PRN Reason: Dry Skin Mirtazapine (Remeron) 15 mg PO HS [facility] Last Admin: 01/20/17 19:58 Dose: 15 mg Morphine Sulfate (Morphine Sulfate) 4 mg SLOW IVP Q1H PRN PRN Reason: Severe Breakthrough Pain Morphine Sulfate (Morphine Sulfate) 2 mg SLOW IVP Q1H PRN PRN Reason: MODERATE BREAKTHRU PAIN Last Admin: 01/19/17 02:19 Dose: 2 mg Ondansetron HCl (Zofran) 4 mg IVP Q6H PRN PRN Reason: Nausea Last Admin: 01/15/17 11:53 Dose: 4 mg Ondansetron HCl (Zofran) 4 mg PO Q6H PRN PRN Reason: Nausea/Vomiting Ondansetron HCl (Zofran Odt) 4 mg PO Q6H PRN PRN Reason: Nausea/Vomiting Pantoprazole Sodium (Protonix) 40 mg IVP Q12HR [facility] Last Admin: 01/21/17 08:53 Dose: 40 mg Phenol (Chloraseptic [place] 180 Ml Bot) 0 ml PO BIDPRN PRN PRN Reason: SORE THROAT Senna (Senokot) 2 tab PO HSPRN PRN PRN Reason: Constipation Sodium Chloride (Flush - Normal Saline) 10 ml IVF PRN PRN PRN Reason: Saline Flush Last Admin: 01/20/17 19:57 Dose: 10 ml Sodium Chloride ([place] Nasal [place] 0.65%) 0 ml EA NARE QIDPRN PRN PRN Reason: Nasal Congestion Tizanidine HCl (Zanaflex) 4 mg PO Q6H PRN PRN Reason: Muscle Spasm Last Admin: 01/17/17 04:42 Dose: 4 mg Tizanidine HCl (Zanaflex) 4 mg PO BID [facility] Last Admin: 01/21/17 08:53 Dose: 4 mg
--- NOTE | 2017-01-21 11:58 | DIS ---
PRIMARY CARE PHYSICIAN: Dr. Pedro Luis Galan DATE OF ADMISSION: 01/14/2017 DATE OF DISCHARGE: 01/21/2017 DISCHARGE DISPOSITION: Home. PRIMARY DISCHARGE DIAGNOSES: 1. Status post cervical laminectomy. 2. Acute hypotension, resolved. SECONDARY DISCHARGE DIAGNOSES: Cervical radiculopathy, anxiety, depression. PRIMARY PROCEDURE/OPERATION: Reopening of cervical incision and removal of drain and subsequent wou nd closure, open reduction internal fixation of C4, C5 fracture dislocation. Cervical laminectomy, C4-C5. RADIOLOGICAL INVESTIGATION: None. SIGNIFICANT LABORATORY: Hemoglobin 14.6, INR 1.0. Creatinine 0.79. DISCHARGE MEDICATIONS: Tylenol #3 one tablet q.3 h. p.r.n., aspirin 325 mg p.o. daily, Keflex 500 m g p.o. q.6 h., Flexeril 10 mg t.i.d. p.r.n., gabapentin 100 mg p.o. b.i.d., Remeron 7.5 mg p.o. at b edtime, Clonazepam 0.5 mg p.o. b.i.d. p.r.n. CONTRAINDICATIONS: None. CODE STATUS: FULL CODE. INPATIENT CONSULTANTS: Dr. Scott was primary, [employer] was consulted for medical comanagement . TEST RESULTS PENDING ON DISCHARGE: None. ALLERGIES: No known drug allergy. DISCHARGE PLAN: Post hospital, the patient will follow up with primary care physician as instructed . HOSPITAL COURSE: A 71-year-old female who was admitted by Dr. Scott. Please see the H\T\P dict ated from neurosurgeon for further details. This patient was admitted for cervical radiculopathy an d the patient had a surgical procedure with decompressive laminectomy at C4-C5 and posterior open re duction internal fixation of C4, C5 fracture dislocation. Subsequently the patient had drain, both anteriorly and posteriorly. While drain was in place the patient was getting IV antibiotic therapy. Subsequently, on 01/18/2017 both drains were removed. Posterior drain required repeat opening of incision and drainage to remove the drain. This patient was waiting in hospital for rehab or swing bed placement. While in hospital, the patient had acute hypotension and that is why [employer] Team was consulted. The patient's hypotension was resolved with IV fluid. The patient is seen and examined at bedside today. Please see my progress note from today for [facility] er details. The patient is planned for discharge and we will sign off.
== END 2017-01-21 12:25 | disposition home or self-care (01) | DRG 454 ==
LOC: SURG A 05:31
PROVIDERS: ADMIT Neurological Surgery; ATTEND Neurological Surgery
PROC: 0RG2071 Fusion of 2 or more Cervical Vertebral Joints with Autologous Tissue Substitute, Posterior Approach, Posterior Column, Open Approach (ICD-10-PCS; principal; 2017-01-14)
PROC: 01N10ZZ Release Cervical Nerve, Open Approach (ICD-10-PCS; 2017-01-14)
PROC: 0RB30ZZ Excision of Cervical Vertebral Disc, Open Approach (ICD-10-PCS; 2017-01-14)
PROC: 0PS304Z Reposition Cervical Vertebra with Internal Fixation Device, Open Approach (ICD-10-PCS; 2017-01-14)
PROC: 0W9K00Z Drainage of Upper Back with Drainage Device, Open Approach (ICD-10-PCS; 2017-01-14)
PROC: 0RG2070 Fusion of 2 or more Cervical Vertebral Joints with Autologous Tissue Substitute, Anterior Approach, Anterior Column, Open Approach (ICD-10-PCS; 2017-01-14)
PROC: 01N10ZZ Release Cervical Nerve, Open Approach (ICD-10-PCS; 2017-01-14)
PROC: 0WP Anatomical Regions, General, Removal (ICD-10-PCS; 2017-01-18)
DX: S12.3 Fracture of fourth cervical vertebra (principal); R44.3 Hallucinations, unspecified; R13.10 Dysphagia, unspecified; F32.9 Major depressive disorder, single episode, unspecified; I95.81 Postprocedural hypotension; F41.9 Anxiety disorder, unspecified; R49.0 Dysphonia; R26.9 Unspecified abnormalities of gait and mobility; S12.43 Unspecified traumatic spondylolisthesis of fifth cervical vertebra; Z85.3 Personal history of malignant neoplasm of breast; Z85.850 Personal history of malignant neoplasm of thyroid; V49.9XXA Car occupant (driver) (passenger) injured in unspecified traffic accident, initial encounter
CPT/HCPCS: 76001; 80048; 85025; 85610; 85730; 90471; 90732; 96372; 96374; A4216; C1713; C1768; C9113; G0009; G8978-GP-CM; G8979-GP-CL; G8987-GO-CJ; G8988-GO-CH; J0670; J0690; J1100; J2001; J2270; J2405; J2704; J3010; J3370; J3490; J7050; L0172; L0174

== ENCOUNTER 2017-03-04 10:09 | Outpatient (CLI) | payer MEDICARE ==
--- NOTE | 2017-03-04 12:21 | RAD ---
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 FINDINGS: The dens is partially obscured with overlying dentition limited detail. Lateral masses of C1 appropri ate aligned. There is anterior and posterior metallic fusion of the C4 and C5 segments without obviou s hardware complication. Intradiscal space device at C4-5 is present. There is reversal of the normal cervical lordosis. Multilevel moderate degenerative change of the cervical spine is greatest at the mid inferior aspect. No acute osseous abnormality is seen. IMPRESSION: Post-operative and degenerative changes within the cervical spine, without acute osseous abnormality. POS: [facility]
== END 2017-03-04 10:10 | disposition home or self-care (01) ==
LOC: TBSIIMAG 10:09
PROVIDERS: ATTEND Neurological Surgery
DX: M47.12 Other spondylosis with myelopathy, cervical region (principal); Z98.890 Other specified postprocedural states
CPT/HCPCS: 72040

== ENCOUNTER 2017-05-20 12:31 | Outpatient (CLI) | payer MEDICARE ==
[~2017-05-20 12:31] MED LIST: Gadobenate Dimeglumine 529 MG/1 ML (20ML VIAL) ONE
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
--- NOTE | 2017-05-21 08:40 | MRI ---
MRI BRAIN WITH AND WITHOUT IV CONTRAST: Date: 05/20/17 HISTORY: Speech abnormality. FINDINGS: No evidence of infarct, hemorrhage, mass, midline shift, or abnormal extra-axial fluid collections ar e seen. The ventricular size is appropriate and the basilar cisterns are patent. No abnormal postcont rast enhancement is identified. The visualized paranasal sinuses and mastoid air cells are well aerat ed. There are changes of mild cortical atrophy. IMPRESSION: Mild cortical atrophy. No evidence of acute intracranial process or mass. POS: [facility]
== END 2017-05-20 12:32 | disposition home or self-care (01) ==
LOC: SCSMRI 12:31
PROVIDERS: ATTEND Psychiatry & Neurology Neurology
DX: R47.9 Unspecified speech disturbances (principal); G31.9 Degenerative disease of nervous system, unspecified; M48.02 Spinal stenosis, cervical region; M99.51 Intervertebral disc stenosis of neural canal of cervical region; Z98.890 Other specified postprocedural states
CPT/HCPCS: 70553; 72141; 82565; A9579

== ENCOUNTER 2018-10-07 12:23 | Outpatient (CLI) | payer MEDICARE ==
--- NOTE | 2018-10-07 14:53 | MRI ---
MRI BRAIN WITH AND WITHOUT CONTRAST: 10/07/2018 HISTORY: A 73-year-old female with dysarthria, confusion, and forgetfulness. TECHNIQUE: Multiple sequences obtained in axial, sagittal, and coronal planes; pre and post IV injection of gado linium-based contrast agent: MultiHance 9 mL. FINDINGS: The ventricles are normal in size and configuration. There are minimal chronic ischemic white matter changes. There is no major intraaxial signal abnormality, restricted diffusion, abnormal intraaxial enhancement, mass, midline shift or any other mass effect, recent intraaxial hemorrhage, or extraaxi al fluid collection. The only interval change, compared to the 05/20/2017 MRI, is the presence of mu cosal thickening and fluid or retention cyst in the right sphenoid air cell, and mild mucosal thicken ing at the left posterior ethmoid air cell, on the current MRI. IMPRESSION: 1. The brain is essentially normal. 2. Mucosal disease in the right sphenoid air cell. jnr POS: [id number]
== END 2018-10-07 12:24 | disposition home or self-care (01) ==
LOC: BICMRI 12:23
PROVIDERS: ATTEND Psychiatry & Neurology Neurology
DX: R47.9 Unspecified speech disturbances (principal); J34.89 Other specified disorders of nose and nasal sinuses
CPT/HCPCS: 70553; 82565; A9577